=== PATIENT | male | born 2000 | race Caucasian/White ===

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

== ENCOUNTER 2019-03-07 00:05 | Emergency (ER) | payer OTHER ==
[~2019-03-07] VITALS: Wt 72.6 kg
[2019-03-07 00:06] VITALS: BP 96/46
[2019-03-07 00:51] LABS: HEMATOCRIT 41.4 % (42.0-52.0); HEMOGLOBIN 15.9 g/dl (14.0-18.0); MEAN CORPUSCULAR HGB 35.3 pg (27.0-31.0); MEAN PLATELET VOLUME 11.7 fl (9.6-12.3); PLATELET COUNT AUTOMATED 192 10*3/uL (130-400); RED CELL DISTRI WIDTH 13.3 % (0-14.5); WHITE BLOOD COUNT 13.3 10*3/uL (4.8-10.8)
[2019-03-07 01:07] LABS: ALBUMIN 4.6 gm/dl (3.1-4.5); ALKALINE PHOSPHATASE 70 U/L (45-117); BUN 16 mg/dl (7-24); CHLORIDE 106 mmol/L (98-107); CREATININE 0.96 mg/dL (0.70-1.30); LIPASE 46 U/L (73-393); POTASSIUM 4.5 mmol/L (3.5-5.1); SGOT/AST 26 IU/L (3-35); SGPT/ALT 32 U/L (12-78); SODIUM 141 mmol/L (136-145); TOTAL PROTEIN 7.5 gm/dL (6.4-8.2)
[2019-03-07 01:09] LABS: MEAN CORPUSCULAR HGB CONC 38.4 g/dl (33.0-37.0)
[2019-03-07 01:19] LABS: PLATELET SUFFICIENCY NORMAL (NORMAL); TOTAL CELLS COUNTED 100 #CELLS
[2019-03-07 01:37] LABS: BILIRUBIN 1+ (NEGATIVE); BLOOD NEGATIVE (NEGATIVE); CLARITY SL CLOUDY (CLEAR); COLOR ORANGE (YELLOW); GLUCOSE NEGATIVE (NEGATIVE); KETONE 3+ (NEGATIVE); LEUKO ESTERASE NEGATIVE (NEGATIVE); NITRITE NEGATIVE (NEGATIVE)
[2019-03-07 01:57] LABS: RBC 0-2 rbc/hpf (0-2); WBC 0-2 wbc/hpf (0-5)
[2019-03-08] MEDS ORDERED: Motrin,Rufen800 MG PO (14:47)
== END 2019-03-07 04:00 | disposition home or self-care (01) ==
LOC: ED 00:05
PROVIDERS: Emergency Medicine
DX: E86.0 Dehydration (principal); E80.7 Disorder of bilirubin metabolism, unspecified; R11.2 Nausea with vomiting, unspecified; Z79.899 Other long term (current) drug therapy

== ENCOUNTER 2019-03-08 13:28 | Emergency (ER) | payer OTHER ==
[~2019-03-08] VITALS: Ht 172.7 cm; Wt 68.0 kg
[2019-03-08 13:29] VITALS: BP 113/56
[2019-03-08 14:12] LABS: HEMATOCRIT 35.5 % (42.0-52.0); HEMOGLOBIN 13.6 g/dl (14.0-18.0); MEAN CELL VOLUME 91.5 fl (80.0-94.0); MEAN CORPUSCULAR HGB 35.1 pg (27.0-31.0); MEAN PLATELET VOLUME 11.6 fl (9.6-12.3); PLATELET COUNT AUTOMATED 180 10*3/uL (130-400); RED BLOOD COUNT 3.88 10*6/uL (4.50-5.90); WHITE BLOOD COUNT 6.9 10*3/uL (4.8-10.8)
[2019-03-08 14:28] LABS: ALBUMIN 4.1 gm/dl (3.1-4.5); ALKALINE PHOSPHATASE 54 U/L (45-117); BUN 11 mg/dl (7-24); CHLORIDE 110 mmol/L (98-107); CREATININE 1.05 mg/dL (0.70-1.30); POTASSIUM 4.1 mmol/L (3.5-5.1); SGOT/AST 17 IU/L (3-35); SGPT/ALT 28 U/L (12-78); SODIUM 142 mmol/L (136-145); TOTAL PROTEIN 6.9 gm/dL (6.4-8.2)
[2019-03-08 14:29] LABS: TROPONIN I < 0.015 ng/ml (<0.045)
[2019-03-08] MEDS ORDERED: Motrin,Rufen800 MG PO (14:47)
[2019-03-08 15:09] LABS: MEAN CORPUSCULAR HGB CONC 38.3 g/dl (33.0-37.0)
[2019-03-08 15:12] LABS: PLATELET SUFFICIENCY NORMAL (NORMAL); TOTAL CELLS COUNTED 100 #CELLS
== END 2019-03-08 14:57 | disposition home or self-care (01) ==
LOC: ED 13:28
PROVIDERS: Emergency Medicine
DX: R07.1 Chest pain on breathing (principal); Z79.899 Other long term (current) drug therapy

== ENCOUNTER 2019-06-05 11:42 | Emergency (ER) | payer OTHER ==
[~2019-06-05] VITALS: Ht 170.1 cm; Wt 72.6 kg
[2019-06-05 11:47] VITALS: BP 120/65
== END 2019-06-05 12:46 | disposition home or self-care (01) ==
LOC: ED 11:42
DX: S61.216A Laceration without foreign body of right little finger without damage to nail, initial encounter (principal); Z79.899 Other long term (current) drug therapy; W22.8XXA Striking against or struck by other objects, initial encounter; Y93.89 Activity, other specified; Y92.89 Other specified places as the place of occurrence of the external cause; Y99.8 Other external cause status

== ENCOUNTER 2019-09-17 20:26 | Emergency (ER) | payer OTHER ==
[~2019-09-17] VITALS: Ht 162.5 cm; Wt 72.6 kg
[2019-09-17 20:31] VITALS: BP 122/62
== END 2019-09-17 22:02 | disposition home or self-care (01) ==
LOC: ED 20:26
DX: S63.602A Unspecified sprain of left thumb, initial encounter (principal); M25.532 Pain in left wrist; Z79.899 Other long term (current) drug therapy; V29.9XXA Motorcycle rider (driver) (passenger) injured in unspecified traffic accident, initial encounter; Y93.89 Activity, other specified; Y92.89 Other specified places as the place of occurrence of the external cause; Y99.8 Other external cause status

== ENCOUNTER 2019-12-20 19:24 | Emergency (ER) | payer OTHER ==
[~2019-12-20] VITALS: Ht 162.5 cm; Wt 72.6 kg
[2019-12-20 19:48] VITALS: BP 119/61
== END 2019-12-20 22:20 | disposition left against medical advice (07) ==
LOC: ED 19:24
DX: M25.571 Pain in right ankle and joints of right foot (principal); Z53.21 Procedure and treatment not carried out due to patient leaving prior to being seen by health care provider; W17.89XA Other fall from one level to another, initial encounter; Y93.89 Activity, other specified; Y92.89 Other specified places as the place of occurrence of the external cause; Y99.8 Other external cause status

== ENCOUNTER 2021-01-06 21:53 | Emergency (ER) | payer OTHER ==
[~2021-01-06] VITALS: Wt 74.4 kg
[2021-01-06 22:09] VITALS: BP 106/52
== END 2021-01-07 00:09 | disposition home or self-care (01) ==
LOC: ED 21:53
DX: S00.462A Insect bite (nonvenomous) of left ear, initial encounter (principal); F17.200 Nicotine dependence, unspecified, uncomplicated; W57.XXXA Bitten or stung by nonvenomous insect and other nonvenomous arthropods, initial encounter; Y93.89 Activity, other specified; Y92.89 Other specified places as the place of occurrence of the external cause; Y99.8 Other external cause status

== ENCOUNTER 2021-05-24 13:40 | Emergency (ER) | payer OTHER ==
[~2021-05-24] VITALS: Ht 167.6 cm; Wt 69.9 kg
[2021-05-24 13:53] VITALS: BP 118/65
[2021-05-24 15:22] LABS: ALKALINE PHOSPHATASE 59 U/L (45-117); BUN 7 mg/dl (7-24); CHLORIDE 110 mmol/L (98-107); CREATININE 0.79 mg/dL (0.70-1.30); LIPASE 75 U/L (73-393); SGOT/AST 15 IU/L (3-35); SGPT/ALT 34 U/L (12-78); SODIUM 141 mmol/L (136-145); TOTAL PROTEIN 6.9 gm/dL (6.4-8.2)
[2021-05-24 15:23] LABS: HEMATOCRIT 37.9 % (42.0-52.0); MEAN CELL VOLUME 93.8 fl (80.0-94.0); MEAN CORPUSCULAR HGB 36.4 pg (27.0-31.0); MEAN PLATELET VOLUME 11.6 fl (9.6-12.3); PLATELET COUNT AUTOMATED 184 10*3/uL (130-400); RED BLOOD COUNT 4.04 10*6/uL (4.50-5.90); RED CELL DISTRI WIDTH 13.2 % (0-14.5); WHITE BLOOD COUNT 11.1 10*3/uL (4.8-10.8)
[2021-05-24 15:26] LABS: MEAN CORPUSCULAR HGB CONC 38.8 g/dl (33.0-37.0)
[2021-05-24 15:27] LABS: MANUAL DIFF REFLEX YES
[2021-05-24 15:36] LABS: BILIRUBIN Negative (Negative); BLOOD Negative (Negative); CLARITY Clear (Clear); COLOR Yellow (Yellow); GLUCOSE Negative (Negative); KETONE Negative (Negative); LEUKO ESTERASE Negative (Negative); NITRITE Negative (Negative); PH 7.5 (4.5-8.0); SPECIFIC GRAVITY <= 1.005 (1.001-1.030); UROBILINOGEN 0.2 E.U./dl (0.0-1.0)
[2021-05-24 15:37] LABS: PLATELET SUFFICIENCY NORMAL (NORMAL); TOTAL CELLS COUNTED 100 #CELLS
[2021-05-24 15:55] LABS: RBC 0-2 rbc/hpf (0-2); WBC 0-2 wbc/hpf (0-5)
== END 2021-05-24 16:44 | disposition home or self-care (01) ==
LOC: ED 13:40
PROVIDERS: Physician Assistant
DX: K92.1 Melena (principal); R10.31 Right lower quadrant pain; Z90.89 Acquired absence of other organs

== ENCOUNTER 2021-09-24 15:18 | Emergency (ER) | payer OTHER ==
[~2021-09-24] VITALS: Wt 68.0 kg
[2021-09-24 15:24] VITALS: BP 118/70
== END 2021-09-24 16:50 | disposition home or self-care (01) ==
LOC: ED 15:18
DX: S93.602A Unspecified sprain of left foot, initial encounter (principal); F17.200 Nicotine dependence, unspecified, uncomplicated; Z90.89 Acquired absence of other organs; X50.9XXA Other and unspecified overexertion or strenuous movements or postures, initial encounter; Y93.31 Activity, mountain climbing, rock climbing and wall climbing; Y92.89 Other specified places as the place of occurrence of the external cause; Y99.8 Other external cause status

== ENCOUNTER 2022-06-11 17:06 | Emergency (ER) | payer OTHER ==
[~2022-06-11] VITALS: Ht 165.1 cm; Wt 70.5 kg
[2022-06-11] MEDS ORDERED: BENTYL PO (17:20)
[2022-06-11] MEDS ORDERED: FOCALIN XR15 MG PO (17:21)
[2022-06-11] MEDS ORDERED: CARAFATE1 G1 PO (17:21)
[2022-06-11] MEDS ORDERED: PROTONIX20 MG PO (17:22)
[2022-06-11] MEDS ORDERED: ABILIFY5 MG PO (17:23)
[2022-06-11] MEDS ORDERED: REMERON15 M2 PO (17:23)
[2022-06-11] MEDS ORDERED: MINIPRESS5 MG PO (17:24)
[2022-06-11 18:03] LABS: ALKALINE PHOSPHATASE 74 U/L (46-116); BUN 9 mg/dl (9-23); CHLORIDE 105 mmol/L (98-107); LIPASE 21 U/L (12-53); POTASSIUM 3.5 mmol/L (3.4-5.1); SGPT/ALT 23 U/L (10-49); TOTAL PROTEIN 6.9 gm/dL (6.0-8.0)
[2022-06-11 18:57] VITALS: BP 104/54
[2022-06-11 19:05] LABS: BILIRUBIN 2+ (Negative); BLOOD Negative (Negative); CLARITY Clear (Clear); GLUCOSE Negative (Negative); KETONE 2+ (Negative); LEUKO ESTERASE 2+ (Negative); NITRITE Positive (Negative); PH 7.5 (4.5-8.0); SPECIFIC GRAVITY >= 1.030 (1.001-1.030); UROBILINOGEN >= 8.0 E.U./dl (0.0-1.0)
[2022-06-11 19:49] LABS: COLOR Orange (Yellow); RBC 0-2 rbc/hpf (0-2); WBC 21-30 wbc/hpf (0-5)
[2022-06-11] MEDS ORDERED: PHENERGAN25 M3 PO (20:17)
[2022-06-11] MEDS ORDERED: CIPRO500 MG PO (20:17)
[2022-06-11 21:04] LABS: HEMATOCRIT 37.2 % (42.0-52.0); MEAN CELL VOLUME 93.9 fl (80.0-94.0); MEAN CORPUSCULAR HGB 35.6 pg (27.0-31.0); MEAN PLATELET VOLUME 10.7 fl (9.6-12.3); PLATELET COUNT AUTOMATED 224 10*3/uL (130-400); RED BLOOD COUNT 3.96 10*6/uL (4.50-5.90); RED CELL DISTRI WIDTH 13.2 % (0-14.5); WHITE BLOOD COUNT 8.7 10*3/uL (4.8-10.8)
[2022-06-11 21:23] LABS: MANUAL DIFF REFLEX YES; MEAN CORPUSCULAR HGB CONC 37.9 g/dl (33.0-37.0)
[2022-06-11 21:31] LABS: ATYPICAL LYMPHS 2 % (0-0); TOTAL CELLS COUNTED 100 #CELLS
[2022-06-11 21:32] LABS: OVALOCYTES FEW; PLATELET SUFFICIENCY NORMAL (NORMAL)
[2022-06-11 21:33] LABS: POLYCHROMASIA SLIGHT
[2022-06-12] MEDS ORDERED: VIBRAMYCIN100 MG PO (11:12)
== END 2022-06-11 21:11 | disposition home or self-care (01) ==
LOC: ED 17:06
PROVIDERS: Nurse Practitioner Family
DX: N39.0 Urinary tract infection, site not specified (principal); E80.4 Gilbert syndrome; Z79.899 Other long term (current) drug therapy; Z90.89 Acquired absence of other organs

== ENCOUNTER 2022-06-13 16:27 | Emergency (ER) | payer OTHER ==
[~2022-06-13] VITALS: Ht 165.1 cm; Wt 70.3 kg
[~2022-06-13 16:27] MED LIST changes: +ABILIFY5 MG PO; +BENTYL PO; +CARAFATE1 G1 PO; +FOCALIN XR15 MG PO; +MINIPRESS5 MG PO; +PHENERGAN25 M3 PO; +PROTONIX20 MG PO; +REMERON15 M2 PO; +VIBRAMYCIN100 MG PO
[2022-06-13 16:43] VITALS: BP 119/74
== END 2022-06-13 18:34 | disposition home or self-care (01) ==
LOC: ED 16:27
DX: S62.614A Displaced fracture of proximal phalanx of right ring finger, initial encounter for closed fracture (principal); F31.9 Bipolar disorder, unspecified; Z98.890 Other specified postprocedural states; Z87.891 Personal history of nicotine dependence; W01.0XXA Fall on same level from slipping, tripping and stumbling without subsequent striking against object, initial encounter; Y93.89 Activity, other specified; Y92.89 Other specified places as the place of occurrence of the external cause; Y99.8 Other external cause status

== ENCOUNTER 2023-04-30 21:29 | Emergency (ER) | payer OTHER ==
[~2023-04-30] VITALS: Wt 80.3 kg
[2023-04-30 21:33] VITALS: BP 123/67
[2023-04-30] MEDS ORDERED: Ondansetron Hydrochloride 4 MG TAB PO ONE (21:40)
[2023-04-30] MEDS ORDERED: ONDANSETRON4 MG SL (23:19)
[2023-04-30] MEDS ORDERED: MELOXICAM15 MG PO (23:19)
== END 2023-04-30 23:27 | disposition home or self-care (01) ==
LOC: ED 21:29
DX: Z04.1 Encounter for examination and observation following transport accident (principal); F90.9 Attention-deficit hyperactivity disorder, unspecified type; F31.9 Bipolar disorder, unspecified; Z98.890 Other specified postprocedural states; Z87.891 Personal history of nicotine dependence; V89.2XXA Person injured in unspecified motor-vehicle accident, traffic, initial encounter; Y93.89 Activity, other specified; Y92.410 Unspecified street and highway as the place of occurrence of the external cause; Y99.8 Other external cause status